=== PATIENT | female | born 1955 | race Caucasian/White ===

== ENCOUNTER 2017-08-05 09:15 | Day surgery (SDC) | payer BC ==
[2017-08-05] MEDS ORDERED: PROPOFOL 20 ML (12:42)
[2017-08-05] MEDS ORDERED: ROCURONIUM 50 MG INJ (12:42)
[2017-08-05] MEDS ORDERED: FENTAnyl 50 MCG/ML VIAL (12:43)
[2017-08-05] MEDS ORDERED: ROPIVACAINE 0.5 % 30 ML VIAL (12:43)
[2017-08-05] MEDS ORDERED: MIDAZOLAM 1 MG/ML 2 ML INJ (12:43)
[2017-08-05] MEDS ORDERED: CEFAZOLIN 1 GM INJ (12:46)
[2017-08-05] MEDS ORDERED: PHENYLephrine (100 MCG/ML) 5ML SYG (14:31)
[2017-08-05] MEDS ORDERED: DEXAMETHASONE 4 MG/ML 1 ML INJ (14:35)
[2017-08-05] MEDS ORDERED: ONDANSETRON 4 MG INJ (14:35)
[2017-08-05] MEDS ORDERED: METOCLOPRAMIDE 10 MG INJ (14:35)
[2017-08-05] MEDS ORDERED: KETOROLAC 30 MG INJ (14:35)
[2017-08-05] MEDS ORDERED: ACETAMINOPHEN 1000MG/100ML IV 100 ML (14:48)
[2017-08-05] MEDS: EPINEPHrine 1 MG/ML 30 ML INJ IRR (15:07)
[2017-08-05] MEDS ORDERED: SUGAMMADEX SODIUM 200 MG/2 ML VIAL IV (15:10)
[2017-08-05] MEDS ORDERED: HYDROmorphONE (0.2 MG/ML) 10ML SYG IV ×3 (15:45→16:00)
[2017-08-05] MEDS: HYDROmorphONE (0.2 MG/ML) 10ML SYG IV ×2 (15:54→16:00)
[2017-08-05] MEDS: FENTAnyl 50 MCG/ML VIAL IV (15:58)
[2017-08-05] MEDS: METOCLOPRAMIDE 10 MG INJ IV (15:58)
[2017-08-05] MEDS ORDERED: ONDANSETRON 4 MG INJ IV (16:00)
[2017-08-05] MEDS ORDERED: EPHEDrine SULFATE 50 MG/5 ML SYG IV (16:00)
[2017-08-05] MEDS ORDERED: DIPHENHYDRAMINE 50 MG INJ IV (16:00)
[2017-08-05] MEDS ORDERED: OXYCODONE/ACETAMINOPHEN (5/325) TAB PO ×2 (16:00)
[2017-08-05] MEDS ORDERED: MEPERIDINE 25 MG INJ IV (16:00)
[2017-08-05] MEDS ORDERED: FENTAnyl 50 MCG/ML VIAL IV ×2 (16:00)
[2017-08-05] MEDS ORDERED: LABETALOL HCL 20MG INJ IV (16:00)
[2017-08-05] MEDS: HYDROCODONE/APAP (5/325) TAB PO (16:38)
[2017-08-05] MEDS ORDERED: morphine 10 MG INJ IV (17:00)
== END 2017-08-05 17:30 | disposition home or self-care (01) ==
LOC: SDS 09:15
DX: M25.812 Other specified joint disorders, left shoulder (principal); M75.102 Unspecified rotator cuff tear or rupture of left shoulder, not specified as traumatic; E78.5 Hyperlipidemia, unspecified
CPT/HCPCS: 29826; 86850; 86900; 86901